=== PATIENT | female | born 1980 | race Caucasian/White ===

== ENCOUNTER 2018-06-25 22:59 | Emergency (ER) | payer OTHER ==
[2018-06-25 23:04] VITALS: TEMP 98
[2018-06-25] MEDS ORDERED: HYDROmorphone 1 MG/ML 1 ML SYRINGE IM STA (23:37)
--- NOTE | 2018-06-25 23:46 | ED ---
General Adult HPI - General Chief complaint: Back Pain/Injury Stated complaint: Back Pain Time Seen by Provider: 06/25/18 23:23 Source: patient, family, RN notes reviewed Mode of arrival: ambulatory Limitations: no limitations - History of Present Illness Initial comments: Chief complaint and history of present illness is a 29-year-old female here with family. The patient reports she has severe right sciatic distribution pain. Ongoing for 4 months. 2 weeks ago the patient was given a prednisone Dosepak which she states did not help. She also states that she has gone through her Huttig for the month. She takes Huttig [address] Lees 4-6 hours. Her doctor has prescribed 180 tablets per month. The patient states that she's not due to get her next refill until the first of the month. She states she is on a pain management contract with him. Patient denies any direct new injury slips or falls. Denies difficulty urinating or bowel movements. Has good control of the perineal muscles. - Related Data Home Medications Medication Instructions Recorded Confirmed HYDROcodone/APAP 10-325MG [Huttig 1 tab PO Q4HR PRN 06/22/16 06/25/18 10-325] Omeprazole [PriLOSEC] 20 mg PO DAILY 06/22/16 06/25/18 Venlafaxine HCl [Effexor XR] 75 mg PO DAILY 06/22/16 06/25/18 Hyoscyamine Sulfate [Levbid] 0.375 mg PO BID 06/25/18 06/25/18 Ibuprofen [Motrin] 800 mg PO TID PRN 06/25/18 06/25/18 Previous Rx's Medication Instructions Recorded Hydrocodone/Acetaminophen [[place]uttig 1 each PO Q6HR PRN #12 tab 06/26/18 5-325] methylPREDNISolone Dose Pack 4 mg PO DIRECTED #21 package 06/26/18 [Medrol Dose Pack] methylPREDNISolone Dose Pack 4 mg PO DIRECTED #21 package 06/26/18 [Medrol Dose Pack] Allergies Allergy/AdvReac Type Severity Reaction Status Date / Time amoxicillin Allergy Unknown Rash/Hives Verified 06/25/18 23:25 Penicillins Allergy Unknown Rash/Hives Verified 06/25/18 23:25 Review of Systems ROS Statement: Those systems with pertinent positive or pertinent negative responses have been documented in the HPI. Review of systems. Patient has no other complaints other than right paralumbar pain radiates from her buttock occasionally down to her foot. Getting progressively worse over the last 4 months. No neuro deficits. All systems reviewed. Past medical problems significant for GERD, arthritis, migraines and irritable bowel syndrome. The patient's surgeries include neck surgery elbow surgery. , gallbladder, previous tubal ligation and uterine ablation. Family history leukemia. Patient does smoke strongly encouraged stop his alcohol rarely socially. ROS Other: All systems not noted in ROS Statement are negative. Past Medical History Past Medical History: GERD/Reflux, Osteoarthritis (OA) Additional Past Medical History / Comment(s): MIGRAINES, IBS WITH DIARRHEA, BACK PAIN & NECK PAIN -STATES HERNIATED DISC'S & HX OF CERVICAL SURGERY. History of Any Multi-Drug Resistant Organisms: None Reported Past Surgical History: Back Surgery, Section, Cholecystectomy, Orthopedic Surgery, Tubal Ligation, Uterine Ablation Additional Past Surgical History / Comment(s): CERVICAL SURGERY WITH PLATE & SCREWS, LEFT KNEE SURGERY X3, X2, BILATERAL ELBOW NERVE SURGERY. Past Anesthesia/Blood Transfusion Reactions: Postoperative Nausea & Vomiting ( PONV) Past Psychological History: Anxiety, Depression Smoking Status: Current every day smoker Past Alcohol Use History: Rare Past Drug Use History: Marijuana - Past Family History Mother Family Medical History: No Reported History General Exam - General Exam Comments Initial Comments: General: The patient is awake and alert, appears a complaint of right sciatic distribution pain. Chronic in nature more acute lately. Vital signs temperature 98.0 pulse 86 respiratory rate 18 pulse ox on percent room air blood pressure 135/86 Eye: Pupils are equal, round and reactive to light, extra-ocular movements are intact ; there is normal conjunctiva bilaterally. No signs of icterus. Ears, nose, mouth and throat: There are moist mucous membranes and no oral lesions. Poor dentition Neck: The neck is supple, Cardiovascular: No complaint of palpitations Respiratory: Denies shortness of breath Gastrointestinal: Denies abdominal discomfort, no nausea vomiting or diarrhea. Back: History chronic back pain. She states she's had lumbar pain increasing for the past 4 months. Sees her family physician. 2 weeks ago was placed on a steroid pack without relief. States she takes Huttig for pain. As run out of her prescription for the month. Points to pain at the lower lumbar area. No rash or lesions noted. States pain radiates down the posterior right buttock to the lateral right thigh occasionally down to her toes. Has no difficulty releasing urine or stool. Denies numbness. Musculoskeletal: He has chronic arthritic problems. Neurological: Right radiculopathy, chronic in nature acutely worse this last several weeks. Skin: Skin is warm and dry and no rashes or lesions are noted. Psychiatric: Cooperative, Limitations: no limitations Course Vital Signs 06/25/18 23:00 Temperature 98.0 F Pulse Rate 86 Respiratory 18 Rate Blood Pressure 135/86 O2 Sat by Pulse 100 Oximetry Medical Decision Making - Medical Decision Making Medical decision making; patient has chronic back pain. For the last 4 months she's had increased right paralumbar pain right sciatic pain. Patient was given a shot of Dilaudid in the emergency room. She was then sent for a CAT scan of the lumbar spine. This is reviewed by the radiologist and his reports includes a large right posterior L5-S1 lumbar disc herniation, increase in size compared to an old MR exam. There is also decreased size of the posterior bulge at L4-L5 compared to an old exam. No fracture. No evidence of spinal stenosis. As read by Dr. Hall The patient will again be placed on a Medrol Dosepak and given 3 days of pain medication. Advised to call follow-up with her physician tomorrow. Return emergency room as needed. Disposition Clinical Impression: Lumbar radiculopathy, acute, Right-sided low back pain with sciatica Disposition: HOME SELF-CARE Condition: Fair Instructions: Acute Low Back Pain (ED), Chronic Back Pain (ED), Sciatica (ED), Lumbar Radiculopathy (ED) Additional Instructions: Take medications as directed. Call follow up with your family doctor tomorrow. Return emergency room as needed Prescriptions: Hydrocodone/Acetaminophen [Huttig 5-325] 1 each PO Q6HR PRN #12 tab PRN Reason: Pain methylPREDNISolone Dose Pack [Medrol Dose Pack] 4 mg PO DIRECTED #21 package Is patient prescribed a controlled substance at d/c from ED?: Yes When asked, does pt state using other controlled substances?: Yes If prescribed controlled substance>3 days was MAPS reviewed?: No If opioid is for acute pain is fill amount 7 days or less?: Yes If Rx opioid, was Start Talking consent form obtained?: No Referrals: Agus Tidwell MD [Primary Care Provider] - 1-2 days Time of Disposition: 00:52
--- NOTE | 2018-06-26 00:08 | CT ---
EXAMINATION TYPE: CT lumbar spine wo con DATE OF EXAM: 06/25/2018 11:58 PM COMPARISON: MR scan 05/27/2012 HISTORY: lower back pain CT DLP: 1300 mGycm Automated exposure control for dose reduction was used. The vertebra have normal spacing and alignment. Posterior elements are intact. There is no compressio n fracture. Sacroiliac joints are intact. There is no lumbar paraspinal mass. There is a moderately large posterior right-sided L5-S1 lumbar disc herniation impinging on the later al recess. Disc herniation measures 10 mm. There is no focal bone destruction. There is no spinal don nosis. IMPRESSION: Large posterior right-sided L5-S1 lumbar disc herniation is increased in size compared to old MR scan . There is decrease in the posterior disc bulging at L4-5 compared to old exam. No fracture.
[2018-06-26 01:06] VITALS: BP 109/57; PULSE 69; RESP 16
== END 2018-06-26 01:06 | disposition home or self-care (01) ==
LOC: EC 22:59
DX: M51.17 Intervertebral disc disorders with radiculopathy, lumbosacral region (principal); K21.9 Gastro-esophageal reflux disease without esophagitis; F41.9 Anxiety disorder, unspecified; F32.9 Major depressive disorder, single episode, unspecified; F17.200 Nicotine dependence, unspecified, uncomplicated; Z90.49 Acquired absence of other specified parts of digestive tract; Z98.51 Tubal ligation status; Z98.890 Other specified postprocedural states; Z79.899 Other long term (current) drug therapy; Z88.0 Allergy status to penicillin
CPT/HCPCS: 72131; 99283; 96372; J1170

== ENCOUNTER → 2018-09-08 | Outpatient (CLI) | payer BC, OTHER ==
--- NOTE | 2018-09-09 19:05 | MR ---
EXAMINATION TYPE: MR lumbar spine wo con DATE OF EXAM: 09/08/2018 COMPARISON: HISTORY: Low back pain into rt lower extremity TECHNIQUE: Multiplanar, multisequence images of the lumbar spine were acquired. FINDINGS: The lumbar vertebral bodies maintain normal vertebral body height and alignment. Multilevel disc desiccation is seen from L3 through S1. Modic type II discogenic endplate changes are seen at L 5-S1. Conus medullaris is unremarkable terminating at L1-L2. L1-L2: Normal disc appearance without desiccation. No herniation, protrusion or disc bulging. No ca nal stenosis is present. Foramina are patent bilaterally. L2-L3: Normal disc appearance without desiccation. No herniation, protrusion or disc bulging. No ca nal stenosis is present. Foramina are patent bilaterally. L3-L4: There is a left foraminal small annular tear and broad-based disc bulge resulting in very mini mal left neural foraminal narrowing. No right neural foraminal narrowing or spinal canal stenosis. L4-L5: Mild facet arthropathy is seen as well as a broad-based disc bulge and central annular tear. N o spinal canal stenosis nor neural foraminal narrowing. L5-S1: There is a large right paracentral disc herniation extending into the lateral recess and right neural foramen with slight mass effect upon the L5 nerve root and mass effect upon the forming S1 ne rve root. This creates only mild right neural foraminal narrowing but creates severe right lateral sp inal canal stenosis. Left neural foramen is patent. IMPRESSION: 1. Large right paracentral disc herniation at L5-S1 creating severe right lateral spinal canal stenos is with mass effect and impingement on the forming S1 nerve root and slight mass effect upon the exit ing L5 nerve root with only mild resultant right neural foraminal narrowing. 2. Small annular tears and the left foraminal location at L3-L4 and central location at L4-L5 with sm all broad-based disc bulges.
== END ==
LOC: RADMRIMAIN 17:14
PROVIDERS: ATTEND Specialist
DX: M48.061 Spinal stenosis, lumbar region without neurogenic claudication (principal); M51.27 Other intervertebral disc displacement, lumbosacral region; M47.16 Other spondylosis with myelopathy, lumbar region; M99.73 Connective tissue and disc stenosis of intervertebral foramina of lumbar region
CPT/HCPCS: 72148

== ENCOUNTER 2019-02-05 13:49 | Emergency (ER) | payer BC, OTHER ==
[2019-02-05 14:16] VITALS: BP 119/81; PULSE 78; RESP 16; TEMP 98.3
[2019-02-05] MEDS ORDERED: DIPH,PERTUS(ACELL)TETVAC-LF 0.5 ML VIAL IM ONE (15:33)
[2019-02-05] MEDS ORDERED: Acetaminophen-Codeine 300-30mg TAB PO STA (15:33)
[2019-02-05] MEDS ORDERED: LIDOCAINE 1% INJ 10MG/ML (20 ML MDV) SQ ONE (15:33)
--- NOTE | 2019-02-05 15:34 | ED ---
Head Injury HPI - General Chief complaint: Head Injury Stated complaint: [facility]- Chin & Hand Lac, Head Injury Time Seen by Provider: 02/05/19 15:20 Source: patient Mode of arrival: wheelchair Limitations: no limitations - History of Present Illness Initial comments: 38-year-old female presented for chin laceration/head injury. Patient states she was at work carrying tea pots when she fell forward and she hit her chin on more of the [place] and her left side of her head on a counter. Patient denies loss of consciousness. Patient denies blood thinners. Patient denies any headache nausea vomiting diplopia pain radiating down the arm, arm or leg weakness, or loss of sensation of the UE and LE bilaterally. Patient states she does have right sided neck pain, denies midline pain. Patient in c-collar. Patient denies mid or low back pain. Patient is the cause because she tripped because you are she was going. Denies any chest pain shortness breath or dizziness. Patient denies any abdomen or rib pain. Remaining review of systems negative upon arrival patient appears well no signs of acute distress. - Related Data Home Medications Medication Instructions Recorded Confirmed HYDROcodone/APAP 10-325MG [P[place]et 1 tab PO Q4HR PRN 06/22/16 06/25/18 10-325] Omeprazole [PriLOSEC] 20 mg PO DAILY 06/22/16 06/25/18 Venlafaxine HCl [Effexor XR] 75 mg PO DAILY 06/22/16 06/25/18 Hyoscyamine Sulfate [Levbid] 0.375 mg PO BID 06/25/18 06/25/18 Ibuprofen [Motrin] 800 mg PO TID PRN 06/25/18 06/25/18 Previous Rx's Medication Instructions Recorded Hydrocodone/Acetaminophen [[place]et 1 each PO Q6HR PRN #12 tab 06/26/18 5-325] methylPREDNISolone Dose Pack 4 mg PO DIRECTED #21 package 06/26/18 [Medrol Dose Pack] methylPREDNISolone Dose Pack 4 mg PO DIRECTED #21 package 06/26/18 [Medrol Dose Pack] Cyclobenzaprine [Flexeril] 10 mg PO TID PRN 7 Days #21 tab 02/05/19 Allergies/Adverse reactions: Allergies Allergy/AdvReac Type Severity Reaction Status Date / Time amoxicillin Allergy Unknown Rash/Hives Verified 02/05/19 14:16 Penicillins Allergy Unknown Rash/Hives Verified 02/05/19 14:16 Review of Systems ROS Statement: Those systems with pertinent positive or pertinent negative responses have been documented in the HPI. ROS Other: All systems not noted in ROS Statement are negative. Past Medical History Past Medical History: GERD/Reflux, Osteoarthritis (OA) Additional Past Medical History / Comment(s): MIGRAINES, IBS WITH DIARRHEA, BACK PAIN & NECK PAIN -STATES HERNIATED DISC'S & HX OF CERVICAL SURGERY. History of Any Multi-Drug Resistant Organisms: None Reported Past Surgical History: Back Surgery, Section, Cholecystectomy, Orthopedic Surgery, Tubal Ligation, Uterine Ablation Additional Past Surgical History / Comment(s): CERVICAL SURGERY WITH PLATE & SCREWS, LEFT KNEE SURGERY X3, X2, BILATERAL ELBOW NERVE SURGERY. Past Anesthesia/Blood Transfusion Reactions: Postoperative Nausea & Vomiting (PONV) Past Psychological History: Anxiety, Depression Smoking Status: Current every day smoker Past Alcohol Use History: Rare Past Drug Use History: Marijuana - Past Family History Mother Family Medical History: No Reported History General Exam - General Exam Comments Initial Comments: General: The patient is awake and alert, in no distress, and does not appear acutely ill. Eye: +3 mm pupils are equal, round and reactive to light, extra-ocular movements are intact. No nystagmus. There is normal conjunctiva bilaterally. No signs of icterus. Ears, nose, mouth and throat: There are moist mucous membranes and no oral lesions. Once c-spine imaging (-). Patient, was removed, patient no tenderness midline patient had right-sided paravertebral tenderness. Patient could for flex extend and flex, rotate without significant discomfort. Neck: The neck is supple, there is no tenderness or JVD. Cardiovascular: There is a regular rate and rhythm. No murmur, rub or gallop is appreciated. Respiratory: Lungs are clear to auscultation, respirations are non-labored, breath sounds are equal. No wheezes, stridor, rales, or rhonchi. Gastrointestinal: Soft, non-distended, non-tender abdomen without masses or organomegaly noted. There is no rebound or guarding present. No CVA tenderness. Bowel sounds are unremarkable. Musculoskeletal: Normal ROM, no tenderness. Strength 5/5 of the UE and LE b/l. Sensation intact of the UE and LE b/l. Radial pulses equal bilaterally 2+. Neurological: A&O x 3. CN II-XII intact, There are no obvious motor or sensory deficits. Coordination appears grossly intact. Speech is normal. No pronator drift. Skin: Skin is warm and dry and no rashes or lesions are noted. 1.8 cm laceration on the chin, adipose exposed. Superficial abrasion left temproal reg ion with hematoma, small. Psychiatric: Cooperative, appropriate mood & affect, normal judgment. Limitations: no limitations Course Vital Signs 02/05/19 14:13 Temperature 98.3 F Pulse Rate 78 Respiratory 16 Rate Blood Pressure 119/81 O2 Sat by Pulse 96 Oximetry Procedures - Laceration Laceration #1 Consent Obtained: verbal consent Indication: laceration Site: face (karsten) Size (cm): 2 (1.8) Description: linear Depth: simple, single layer Anesthesia Technique: local infiltration Amount (mls): 1 Pre-repair: wound explored, irrigated extensively, deep structures intact Type of Sutures: nylon Size of Sutures: 6-0 Number of Sutures: 5 Technique: simple, interrupted Patient Tolerated Procedure: well, no complications Medical Decision Making - Medical Decision Making 38-year-old female presenting for laceration to chin head injury. Patient denies loss of consciousness. No focal neurological deficits. Patient has c- collar in place. CT of the brain C-spine negative. Patient had no midline tenderness to palpation with c-collar was removed for range of motion without significant discomfort. There was right-sided paravertebral tenderness. Patient's chin laceration was repaired after extensive cleansing. Patient denied any other areas of injury. Patient ambulatory. Appearing well. Discussed the case with attending provider Dr. Whitehead I feel patient is stable for discharge with PCP f/u and return for suture removal in 5 days. Patient agreeable with care plan and d/c at this time. Disposition Clinical Impression: Chin laceration, Fall, Head injury, Abrasion of left hand, Scalp hematoma, Neck muscle strain Disposition: HOME SELF-CARE Condition: Good Instructions (If sedation given, give patient instructions): Cervical Strain (ED), Care For Your Stitches (ED), Facial Laceration (ED) Additional Instructions: Please use medication as discussed. Please follow-up with family doctor in the next 2 days, please return in 5 days for suture removal. Please return to emergency room if the symptoms increase or worsen or for any other concerns. Prescriptions: Cyclobenzaprine [Flexeril] 10 mg PO TID PRN 7 Days #21 tab PRN Reason: Muscle Spasm Is patient prescribed a controlled substance at d/c from ED?: No Referrals: Agus Tidwell MD [Primary Care Provider] - 1-2 days Time of Disposition: 17:13
--- NOTE | 2019-02-05 16:19 | CT ---
EXAMINATION TYPE: CT brain paulette wo con DATE OF EXAM: 02/05/2019 COMPARISON: None HISTORY: trauma today with frontal and left temporal laceration. Right sided neck pain CT DLP: 1512.4 mGycm, Automated exposure control for dose reduction was used. CONTRAST: Patient injected with 0 mL of Isovue 300. CT of the brain is performed utilizing 3 mm thick sections through the posterior fossa and 3 mm thick sections through the remaining calvarium. Study is performed within 24 hours of arrival to the hospital. No abnormal hyperdensity is present to suggest an acute intracranial hemorrhage. No mass lesion is evident. No acute infarcts are evident. Ventricles and sulci are appropriate for the patient age. There is some mild mucosal thickening within the maxillary sinuses. Remaining paranasal sinuses masto id air cells are clear. IMPRESSIONS: 1. Normal CT brain. CT cervical spine. COMPARISON: None CT of the cervical spine is performed in the axial plane at 2 mm thick sections. Reconstructed image s in the coronal, and sagittal plane are reviewed on the computer. No acute fractures are evident. There is an anterior cervical fusion of C5-6. Some disc space narrowing at C4-5 with anterior vertebr al body spurring is present and there is loss of disc height and anterior vertebral body spurring at C6-7. Vertebral body heights are preserved. No spinal canal stenosis is evident. No neural foraminal stenosis is evident. IMPRESSIONS: 1. Postsurgical changes cervical spine. 2. No acute osseous abnormality cervical spine.
[2019-02-05] MEDS ORDERED: ACET/COD 300 MG/30 MG STARTER PACK 6 TAB BTL PO STA (17:14)
== END 2019-02-05 17:27 | disposition home or self-care (01) ==
LOC: EC 13:49
DX: S01.81XA Laceration without foreign body of other part of head, initial encounter (principal); S60.512A Abrasion of left hand, initial encounter; S16.1XXA Strain of muscle, fascia and tendon at neck level, initial encounter; Z23 Encounter for immunization; F41.9 Anxiety disorder, unspecified; F32.9 Major depressive disorder, single episode, unspecified; F17.200 Nicotine dependence, unspecified, uncomplicated; Z79.899 Other long term (current) drug therapy; Z88.0 Allergy status to penicillin; Z98.1 Arthrodesis status; W18.09XA Striking against other object with subsequent fall, initial encounter; Y92.69 Other specified industrial and construction area as the place of occurrence of the external cause; Y99.0 Civilian activity done for income or pay
CPT/HCPCS: 72125; 70450; 90715; 99283; 12011; 90471; J2001

== ENCOUNTER → 2023-07-19 | Outpatient (CLI) | payer OTHER ==
[2023-07-19 10:58] LABS: Basophils # (A) 0.08 X 10*3/uL (0.00-0.10); Basophils % (A) 0.9 %; Eosinophils # (A) 0.38 X 10*3/uL (0.04-0.35); Eosinophils % (A) 4.4 %; HCT 42.8 % (37.2-46.3); HGB 14.4 g/dL (12.0-15.0); Lymphocytes # (A) 2.61 X 10*3/uL (0.90-5.00); Lymphocytes % (A) 30.5 %; MCH 29.1 pg (27.0-32.0); MCHC 33.6 g/dL (32.0-37.0); MCV 86.6 FL (80.0-97.0); Mean Platelet Volume 11.1 FL (9.5-12.2); Monocytes # (A) 0.47 X 10*3/uL (0.20-1.00); Monocytes % (A) 5.5 %; NRBC Per 100 WBC 0 X 10*3/uL (0.00-0.01); Neutrophils % (A) 58.5 %; Platelet Count 286 X 10*3/uL (140-440); RBC 4.94 X 10*6/uL (4.10-5.20); RDW 12.4 % (11.5-14.5); WBC 8.56 X 10*3/uL (4.50-10.00)
[2023-07-19 11:01] LABS: ALT 36 U/L (8-44); AST 21 U/L (13-35)
== END | disposition home or self-care (01) ==
LOC: LABWHC1 07:03
PROVIDERS: ATTEND Dermatology MOHS-Micrographic Surgery
DX: L40.0 Psoriasis vulgaris (principal); Z79.899 Other long term (current) drug therapy
CPT/HCPCS: 36415; 82565; 84450; 84460; 85025; 86480

== ENCOUNTER → 2023-07-30 | Outpatient (CLI) | payer OTHER ==
--- NOTE | 2023-07-30 12:15 | XR ---
EXAMINATION TYPE: XR knee complete RT DATE OF EXAM: 07/30/2023 10:46 AM CLINICAL INDICATION:Female, 42 years old with history of M25.561 XR KNEE 3V R; [facility] COMPARISON: None. TECHNIQUE: XR knee complete RT; examined in Frontal, lateral and oblique projections. FINDINGS: No evidence of any acute osseous pathology, soft tissue swelling, or joint effusion is no gianfranco. IMPRESSION: 1. No acute osseous pathology.
== END | disposition home or self-care (01) ==
LOC: RADXRMAIN 10:11
PROVIDERS: ATTEND Family Medicine
DX: M25.561 Pain in right knee (principal)

== ENCOUNTER 2024-03-14 19:25 | Emergency (ER) | payer OTHER ==
[2024-03-14] MEDS ORDERED: Acetaminophen-Codeine 300-30mg TAB ONE (21:27)
[2024-03-14] MEDS ORDERED: CLINDAMYCIN 150 MG CAP ONE (21:33)
[2024-03-14] MEDS ORDERED: DOXYCYCLINE 100 MG CAP ONE (21:43)
== END 2024-03-14 22:12 ==
LOC: EC 19:25
DX: K04.7 Periapical abscess without sinus (principal)
CPT/HCPCS: 99282